=== PATIENT | female | born 1990 | race Caucasian/White ===

== ENCOUNTER 2016-11-06 06:14 | Inpatient (IN) | payer MEDICAID ==
[~2016-11-06] VITALS: Ht 167.6 cm; Wt 71.7 kg
[2016-11-06] VITALS (16 sets, daily range): BP systolic 97–119; RESP 8–20; TEMP 97.6–99; Ht 167.6 cm; Wt 71.7 kg
[2016-11-06] MEDS ORDERED: FAMOTIDINE 20 MG INJ IV ONE (06:35)
[2016-11-06] MEDS ORDERED: LACT RINGERS 1,000 ML IV SCH (06:35)
[2016-11-06] MEDS ORDERED: ACETAMINOPHEN 650 MG/20.3 ML UDC PO PRN (06:35)
[2016-11-06] MEDS ORDERED: METOCLOPRAMIDE 10 MG/2 ML VIAL IV PUSH ONE (06:35)
[2016-11-06] MEDS ORDERED: LIDOCAINE 1% BUFFERED 1 ML SYR INTRADERM PRN (06:35)
[2016-11-06] MEDS ORDERED: oxyCODONE 5 MG/5 ML PO PRN (06:35)
[2016-11-06] MEDS ORDERED: CLINDAMYCIN 900 MG in DEXTROSE 5% 50 ML IV ONE (06:35)
[2016-11-06] MEDS ORDERED: GENTAMICIN 360 MG in SODIUM CHLORIDE 0.9% 100 ML IV ONE (06:35)
[2016-11-06] MEDS ORDERED: GENTAMICIN 360 MG in SODIUM CHLORIDE 0.9% 100 ML IV SCH (06:40)
[2016-11-06] MEDS ORDERED: BUTORPHANOL 1 MG/ML VIAL IV PRN (07:45)
[2016-11-06] MEDS ORDERED: MORPHINE 2 MG/ML SYR IV PRN ×2 (07:45)
[2016-11-06] MEDS ORDERED: OXYCODONE 5 MG TAB PO PRN (07:45)
[2016-11-06] MEDS ORDERED: ONDANSETRON 4 MG VIAL IV PRN ×3 (07:45→08:25)
[2016-11-06] MEDS ORDERED: PROMETHAZINE 25 MG/ML VIAL IV PRN (07:45)
[2016-11-06] MEDS ORDERED: DILAUDID 1 MG/ML AMP IV PRN (07:45)
[2016-11-06] MEDS ORDERED: MORPHINE 4 MG/ML SYR IV PRN ×2 (07:45)
[2016-11-06] MEDS ORDERED: MEPERIDINE 25 MG/ML IV PRN (07:45)
[2016-11-06] MEDS ORDERED: NALOXONE 0.4 MG/ML AMP IV PRN (07:45)
[2016-11-06] MEDS ORDERED: SALINE FLUSH 10 ML FLUSH PRN ×2 (07:45→08:25)
[2016-11-06] MEDS ORDERED: TDaP 0.5 ML VIAL IM.VACC ONE (08:25)
[2016-11-06] MEDS ORDERED: MAG HYDROX 30 ML UDC PO PRN (08:25)
[2016-11-06] MEDS ORDERED: BISACODYL 10 MG SUPP RECTAL PRN (08:25)
[2016-11-06] MEDS ORDERED: OXYTOCIN 15 UNITS/250 ML NS 250 ML IV SCH (08:25)
[2016-11-06] MEDS ORDERED: MEASLES,MUMPS,RUBELLA VAC SUBQ.VACC ONE (08:25)
[2016-11-06] MEDS: SALINE FLUSH 10 ML FLUSH SCH ×3 (10:33→20:00)
[2016-11-06] MEDS: DOCUSATE SOD 100 MG/10 ML UDC PO SCH ×2 (10:34→20:22)
[2016-11-06] MEDS: METRONIDAZOLE 500MG/100ML 100 ML IV SCH ×2 (10:35→18:10)
[2016-11-06] MEDS: DIPHENHYDRAMINE 50 MG/ML VIAL IV PRN ×2 (10:40→23:06)
[2016-11-06] MEDS: KETOROLAC 30 MG/ML VIAL IV SCH ×2 (11:46→18:10)
[2016-11-06] MEDS: LACT RINGERS 1,000 ML IV SCH (18:09)
[2016-11-07] VITALS (7 sets, daily range): BP systolic 92–142; RESP 16–18; TEMP 97.7–98.2
[2016-11-07] MEDS: KETOROLAC 30 MG/ML VIAL IV SCH ×2 (00:52→05:58)
[2016-11-07] MEDS: LACT RINGERS 1,000 ML IV SCH (00:52)
[2016-11-07] MEDS: METRONIDAZOLE 500MG/100ML 100 ML IV SCH ×4 (00:52→23:29)
[2016-11-07] MEDS: SODIUM CHLORIDE 0.9% FLUSH BAG 500 ML IV SCH (06:00)
[2016-11-07] MEDS ORDERED: SALINE FLUSH 10 ML FLUSH PRN (07:55)
[2016-11-07] MEDS ORDERED: SODIUM CHLORIDE 0.9% FLUSH BAG 500 ML IV PRN (07:55)
[2016-11-07] MEDS: SALINE FLUSH 10 ML FLUSH SCH ×6 (08:00→20:00)
[2016-11-07] MEDS: DOCUSATE SOD 100 MG/10 ML UDC PO SCH ×2 (08:00→21:04)
[2016-11-07] MEDS ORDERED: MISSING DOSE XX ONE (11:30)
[2016-11-07] MEDS: IBUPROFEN LQ 120 ML BTL PO PRN ×3 (12:06→23:31)
[2016-11-07] MEDS: ACETAMINOPHEN 650 MG/20.3 ML UDC PO PRN ×2 (14:57→19:07)
[2016-11-07] MEDS: oxyCODONE 5 MG/5 ML PO PRN (14:57)
[2016-11-07] MEDS: SODIUM CHLORIDE 0.9% FLUSH BAG 500 ML IV PRN ×2 (16:13→23:46)
[2016-11-07] MEDS: NICOTINE 21 MG/24 HR TRANSDERM SCH (18:06)
[2016-11-08 05:17] VITALS: BP_SYST 96; RESP 18; TEMP 98
[2016-11-08] MEDS: IBUPROFEN LQ 120 ML BTL PO PRN ×2 (05:18→11:59)
[2016-11-08] MEDS: SODIUM CHLORIDE 0.9% FLUSH BAG 500 ML IV SCH (05:18)
[2016-11-08] MEDS: SALINE FLUSH 10 ML FLUSH SCH ×6 (08:00→12:58)
[2016-11-08] MEDS: DOCUSATE SOD 100 MG/10 ML UDC PO SCH (08:45)
[2016-11-08 08:57] VITALS: BP_SYST 112; RESP 18; RESP 20; TEMP 97.2
[2016-11-08] MEDS: NICOTINE 21 MG/24 HR TRANSDERM SCH (11:21)
[2016-11-08 12:03] VITALS: BP_SYST 110; RESP 18; TEMP 97.2
[2016-11-08] MEDS: oxyCODONE 5 MG/5 ML PO PRN (13:08)
[2016-11-08] MEDS: ACETAMINOPHEN 650 MG/20.3 ML UDC PO PRN (13:09)
== END 2016-11-08 14:46 | disposition home or self-care (01) | DRG 765 ==
LOC: LD 06:14 → OB 11:30
PROVIDERS: ADMIT Obstetrics & Gynecology; ATTEND Obstetrics & Gynecology
PROC: 10D00Z1 Extraction of Products of Conception, Low, Open Approach (ICD-10-PCS; principal; 2016-11-06)
DX: O34.219 Maternal care for unspecified type scar from previous cesarean delivery (principal); O98.32 Other infections with a predominantly sexual mode of transmission complicating childbirth; O99.334 Smoking (tobacco) complicating childbirth; O16.4 Unspecified maternal hypertension, complicating childbirth; O99.824 Streptococcus B carrier state complicating childbirth; A59.01 Trichomonal vulvovaginitis; Z3A.39 39 weeks gestation of pregnancy; Z37.0 Single live birth; Z91.19 Patient's noncompliance with other medical treatment and regimen
CPT/HCPCS: 80307; 82803; 82947; 85025; 86850; 86870; 86900; 86901; 86970